=== PATIENT | male | born 1985 | race Caucasian/White ===

== ENCOUNTER 2016-05-02 09:05 | Emergency (ER) | payer OTHER ==
[2016-05-02 09:23] VITALS: BP 148/78; PULSE 70; RESP 20; TEMP 97.9
[2016-05-02] MEDS ORDERED: ORPHENADRINE 30 MG/ML 2 ML VIAL IVP STA (09:24)
--- NOTE | 2016-05-02 09:26 | ED ---
General Adult HPI - General Chief complaint: Back Pain/Injury Stated complaint: back pain-[facility] Time Seen by Provider: 05/02/16 09:08 Source: patient, EMS, RN notes reviewed Mode of arrival: EMS Limitations: physical limitation - History of Present Illness Initial comments: 30-year-old male presents emergency Department chief complaint of low back pain. Patient states that he works at the [employer] states that he was cleaning the toilet in which he was bent over towards the toilet. Patient states he has some onset of shooting pain in his left low back. Patient states pain radiates down his left leg and he does have some intermittent paresthesias. Patient denies any bowel, bladder incontinence or any saddle anesthesias. Patient states she's had some back pain in the past but states started this extent. Patient was given morphine by EMS and which she states has helped some. Patient denies any abdominal pain, nausea, vomiting. Patient denies any chest or shortness breath. - Related Data Previous Rx's Medication Instructions Recorded Cyclobenzaprine [Flexeril] 5 mg PO TID PRN #10 tablet 03/22/14 Hydrocodone/Acetaminophen [[place] 1 each PO Q6HR PRN #14 tab 03/22/14 5-325] Cyclobenzaprine [Flexeril] 10 mg PO TID PRN #15 tab 05/02/16 Hydrocodone/Acetaminophen [[place] 1 tab PO Q6HR PRN #20 tab 05/02/16 5-325] Allergies Allergy/AdvReac Type Severity Reaction Status Date / Time Penicillins AdvReac Unknown Verified 05/02/16 09:23 Review of Systems ROS Statement: Those systems with pertinent positive or pertinent negative responses have been documented in the HPI. ROS Other: All systems not noted in ROS Statement are negative. Past Medical History Past Medical History: No Reported History Additional Past Medical History / Comment(s): back pain History of Any Multi-Drug Resistant Organisms: None Reported Past Surgical History: No Surgical Hx Reported Past Psychological History: No Psychological Hx Reported Smoking Status: Current every day smoker Past Alcohol Use History: None Reported Past Drug Use History: None Reported General Exam Limitations: physical limitation General appearance: alert, in no apparent distress Neck exam: Present: normal inspection, full ROM. Absent: tenderness, meningismus, lymphadenopathy Respiratory exam: Present: normal lung sounds bilaterally. Absent: respiratory distress, wheezes, rales, rhonchi, stridor Cardiovascular Exam: Present: regular rate, normal rhythm, normal heart sounds. Absent: systolic murmur, diastolic murmur, rubs, gallop, clicks GI/Abdominal exam: Present: soft, normal bowel sounds. Absent: distended, tenderness, guarding, rebound, rigid Extremities exam: Present: other (Bilateral lower extremity strength equal bilaterally, neurovascular intact no rashes pulses equal bilaterally) Back exam: Present: tenderness (Mild tenderness left low back), muscle spasm, paraspinal tenderness, vertebral tenderness. Absent: full ROM (Mild discomfort with flexion extension rotation) Neurological exam: Present: alert, oriented X3, CN II-XII intact, reflexes normal. Absent: motor sensory deficit Skin exam: Present: warm, dry, intact, normal color. Absent: rash Course Vital Signs 05/02/16 09:20 Temperature 97.9 F Pulse Rate 70 Respiratory 20 Rate Blood Pressure 148/78 O2 Sat by Pulse 99 Oximetry Medical Decision Making - Medical Decision Making 30-year-old male present emergency from for low back pain. Patient x-ray shows no acute abnormality. Patient will be discharged and kept off work until follow -up with [facility]. Disposition Clinical Impression: Strain of lumbar region Disposition: HOME SELF-CARE Condition: Stable Instructions: Acute Low Back Pain (ED) Additional Instructions: Please return to the Emergency Department if symptoms worsen or any other concerns. Prescriptions: Cyclobenzaprine [Flexeril] 10 mg PO TID PRN #15 tab PRN Reason: Muscle Spasm Hydrocodone/Acetaminophen [[place] 5-325] 1 tab PO Q6HR PRN #20 tab PRN Reason: Pain Referrals: None,Stated [Primary Care Provider] - 1-2 days Time of Disposition: 10:26
--- NOTE | 2016-05-02 10:19 | XR ---
EXAMINATION TYPE: XR lumbosacral spine min 4V DATE OF EXAM: 05/02/2016 10:11 AM COMPARISON: 03/22/2014 HISTORY: Pain TECHNIQUE: 5 view lumbar spine FINDINGS: There are 6 lumbar-type vertebral bodies. The pedicles are intact. There appears to be a tr ansitional S1 segment. Facets are normal. No spondylolytic defects are evident. There is minimal wedg e deformity of L2 which is stable. A Schmorl's node is present. There is slight bending towards the right. This is nonspecific could be related to patient positionin g or muscle is present. IMPRESSION: 1. No acute osseous abnormality. 2. Note is made of mild side bending towards the right. Position or related to muscle spasm.
== END 2016-05-02 11:17 | disposition home or self-care (01) ==
LOC: EC 09:05
DX: S39.012A Strain of muscle, fascia and tendon of lower back, initial encounter (principal); X50.1XXA Overexertion from prolonged static or awkward postures, initial encounter; Y92.524 Gas station as the place of occurrence of the external cause; Y99.0 Civilian activity done for income or pay; Z88.0 Allergy status to penicillin; F17.200 Nicotine dependence, unspecified, uncomplicated
CPT/HCPCS: 72110; 99283; 96374; J2360